=== PATIENT | female | born 1975 | race Caucasian/White ===

== ENCOUNTER 2021-07-28 14:51 | Outpatient (CLI) | payer OTHER, SELFPAY ==
--- NOTE | ~2021-07-28 | XR_ITS ---
EXAMINATION: XR chest 2V DATE: 07/28/2021 15:14 INDICATION: Right chest pain. TECHNIQUE: Frontal and lateral views of the chest were obtained. COMPARISON: None. FINDINGS: There is mild scarring at right lung apex. No pleural effusion or pneumothorax. The heart s ize is normal. A surgical clip overlie left chest. IMPRESSION: 1. Mild scarring at right lung apex. Reviewed, dictated and finalized at location A.
== END 2021-07-28 14:52 | disposition home or self-care (01) ==
LOC: CHSIMG 14:55
PROVIDERS: PCP Family Medicine; Visit Provider Physician Assistant
DX: R07.81 Pleurodynia (principal)
CPT/HCPCS: 71046

== ENCOUNTER 2021-10-31 13:58 | Outpatient (RCR) | payer OTHER, SELFPAY ==
--- NOTE | 2021-10-31 14:45 | PTOPEVAL ---
Thank you for referring Yojana Jaquez to [facility].? The patient is scheduled to be seen for therapy? __2__x/week for 12 visits. Please review, sign, date and return this plan of care GUME. I agree with and certify that the following plan of care is medically necessary. Referring Physician Date Admitting Provider: Attending Provider: VIKTORIYA BLANCAS Referring Provider: *PT Outpatient Evaluation Start: 10/31/21 14:10 Freq: Status: Active Protocol: Document 10/31/21 14:05 LIZBETH (Rec: 10/31/21 14:44 LIZBETH [email or web address]) Therapy Assessment Status Assessment Status Assessment Status Evaluation Evaluation Information Problem Diagnosis low back pain Onset 10/27/21 Subjective Information Pt. reports suffering from on/ Query Text:As Reported By Patient/ off back pain for several Family years. She describes pain on the left side of the back. She reports that occassionally pain will shoot down the left leg but rarely. She reports that the pain at the low back is continous. She reports nothing particular will increase her pain. She reports no difficulty with sleeping at night. 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 She reports her goal is to be able to decrease her back pain. Diagnostic Tests X-Rays For This Problem Yes Prior Level of Function Activity Level (Last 3 Months) Occupation breakfast manager Hand Dominance Right Activity of Daily Living Ability Independent Indoor/Home Mobility Independent Community Mobility Independent Stairs Ability Independent Functional Cognition (Planning, Shopping Independent , Taking Medications) Cooking Yes Cleaning Yes Laundry Yes Shopping Yes Driving Yes Pain Assessment Timing of Pain Assessment Timing of Pain Assessment Pre-Treatment Pain Scale Pain Scale Used Numeric (1 - 10) Self Report Pain Assessment Left Lower Back Reported Pain Level 7 Pain Description Aching Pain Radiation Left Leg Greatest Pain Intensity 10 Pain Aggravating Factors None Pain Score Pain
--- NOTE | 2021-11-29 07:51 | PCPTNOTE ---
Mrs. Jaquez attended a total of 4 treatment sessions from 10/31/21 татьяна 11/09/21. She has failed to return to the clinic and cannot be contact via telephone. She will be discharged from our care. Refer to pt. last daily note for discharge status.
== END 2021-11-09 13:53 | disposition home or self-care (01) ==
LOC: CHSPT 13:58
DX: M54.9 Dorsalgia, unspecified (principal); M54.50 Low back pain, unspecified
CPT/HCPCS: 97014; 97110; 97140; 97161; G0283

== ENCOUNTER 2024-05-18 08:00 | Outpatient (CLI) | payer OTHER, SELFPAY ==
--- NOTE | ~2024-05-18 | MM_ITS ---
EXAMINATION: MM screening gurmeet BI w leeanna HISTORY: Screening TECHNIQUE: Craniocaudal and mediolateral oblique 3-D tomosynthesis images were obtained and synthetic 2-D images were generated. CAD analysis was submitted and interpreted. COMPARISON: No prior mammogram is available for comparison at this institution. BREAST PARENCHYMAL COMPOSITION: Not dense: There are scattered areas of fibroglandular density. FINDINGS: There is no evidence of suspicious mass, calcification, or architectural distortion to sugg est malignancy in either breast. There has been no suspicious interval change. IMPRESSION: 1. No mammographic evidence of malignancy. 2. Recommend routine screening mammography in one year. BI-RADS Category 1: Negative Reviewed, dictated and finalized at location B.
== END 2024-05-18 08:01 | disposition home or self-care (01) ==
LOC: CHSIMG 08:06
PROVIDERS: PCP Physician Assistant; Visit Provider Physician Assistant
DX: Z12.31 Encounter for screening mammogram for malignant neoplasm of breast (principal)
CPT/HCPCS: 77063; 77067

== ENCOUNTER 2025-05-05 13:41 | Outpatient (CLI) | payer OTHER, SELFPAY ==
--- NOTE | ~2025-05-05 | XR_ITS ---
EXAM: XR toe 3rd LT min 2V DATE: 05/05/2025 14:00 HISTORY: PAIN OF TOE OF LEFT FOOT . COMPARISON: None available. FINDINGS: Normal mineralization. Subtle transverse lucency across the mid shaft of the left third pr oximal phalanx, with slight cortical irregularity and fluffy appearing periosteal changes. No lytic o r blastic lesion. Joint spaces are maintained. No erosions. Proximal soft tissue swelling of the thir d toe. IMPRESSION: Possible nondisplaced transverse fracture at the midshaft of the left third proximal phalanx if there has been history of trauma. Adjacent periosteal changes may represent healing change. In the absence of trauma, inflammatory or i nfectious changes should be considered. Correlate for clinical findings of infection, if present cons ider MR of the toes without and with contrast. Reviewed, dictated and finalized at location K. IMPRESSION: Possible nondisplaced transverse fracture at the midshaft of the left third pro ximal phalanx if there has been history of trauma. Adjacent periosteal changes may represent healing change. In the absence of tra brittni, inflammatory or infectious changes should be considered. Correlate for cli nical findings of infection, if present consider MR of the toes without and wit h contrast.
--- OUTSIDE RECORDS SUMMARY | 2025-05-05 13:49 | XMS_ITS | Clinical Summary ---
Author Organization 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 Gender Identity Not on file Sexual Orientation Not on file Last Filed Vital Signs Vital Sign Reading Time Taken Comments Blood Pressure 155/98 06/10/2021 8:15 PM CDT Pulse 78 06/10/2021 6:08 PM CDT Temperature 35.8 C (96.5 F) 06/10/2021 6:08 PM CDT Respiratory Rate 18 06/10/2021 6:08 PM CDT Oxygen Saturation 97% 06/10/2021 8:15 PM CDT Inhaled Oxygen Concentration - - Weight 82 kg (180 lb 12.4 oz) 06/10/2021 6:08 PM CDT Height 157.5 cm (5' 2) 06/10/2021 6:08 PM CDT Body Mass Index 33.06 06/10/2021 6:08 PM CDT Plan of Treatment Health Maintenance Due Date Last Done Comments Cervical Cancer Screening Pa p Smear (Age 30 to 64) Every 3 Years 1975 Colorectal Cancer Screening Colonoscopy (10 Years) 1975 Annual Physical 1978 Hepatitis C 1993 DTaP, Tdap and Td Vaccines ( 1 - Tdap) 1994 Hepatitis B Vaccines (1 of 3 - 19+ 3-dose series) 1994 Pneumococcal Vaccine: Pediatrics (0 to 5 Years) and At-Risk Patients (6 to 49 Years) (1 of 2 - PCV) 1994 Cervical Cancer Screening Pa p with HPV Testing (Age 30 to 64) Every 5 Years 2005 Cervical Cancer Screening wi th HPV 2005 Mammogram Screening 04/13/2022 04/13/2020, 04/08/2020 COVID-19 Vaccine (2023-2 5 season) 2024 Meningococcal B Vaccine Aged Out No l onger eligible based on patient's age to complete this topic Meningococcal Vaccine Aged Out No alice babatunde eligible based on patient's age to complete this topic RSV Immunizations Under 20 Months Aged Out No longer eligible b ased on patient's age to complete this topic Procedures Procedure Name Priority Date/Time Associated Diagnosis Comments MG DIAG ADD VIEW RT DIGI Routine 04/13/2020 9:11 AM CDT Abnormal mammogram from Last 3 Months or Most Recently Relevant to Health Maintenance Results * MG DIAG ADD VIEW RT DIGI (04/13/2020 9:11 AM CDT) Anatomical Region Laterality Modality Breast Right Mammography 04/18/2020 3:49 PM CDT Impressions 04/18/2020 3:55 PM CDT IMPRESSION: Additional diagnostic imaging fails to disclose any suspicious abnormality. Routine follow-up in one year would now seem adequate. Recommendation: 1: Routine screening mammogram Bilateral in 1 Year Overall assessment: ACR BI-RADS Category 2 - Benign. Return for Routine Follow-Up: Yes Interpreted By: Silverio Arriola, 04/18/2020 3:49 PM Narrative 04/18/2020 3:55 PM CDT Examination: Digital right diagnostic mammogram with CAD. [id number] Clinical history: Follow-up, abnormal screening mammogram. Comparison: 04/08/2020. Technique: True lateral and spot compression CC and MLO right digital mammograms. The exam was interpreted with the use of a computer-aided detection (CAD) system. Tissue density: The breast tissue is heterogeneously dense. Findings: The patient returned for additional diagnostic imaging to further evaluate the abnormalities identified at baseline screening. The single view asymmetry posteriorly identified on the MLO view near the nipple axis at screening shows no correlate on the true lateral view. Under spot compression, there is effacement with no evidence of underlying mass, suspicious microcalcification or architectural distortion. This is consistent with benign summation. The questioned architectural distortion in the upper outer quadrant shows no definite correlate on the true lateral view. Under spot compression, there is subtotal effacement with no definite evidence of underlying mass, suspicious microcalcification or architectural distortion. Mixed fatty and moderately dense tissue background persists. Benign-appearing calcification again evident. Due to the density of the local tissue background, it was elected to perform ultrasound. Examination: Right breast ultrasound. Technique:Grayscale and color Doppler images. Findings: Survey was performed from the 8:00-1:00 positions through 12:00 encompassing the broad region of interest. A 5 mm in greatest dimension mammographically occult benign complicated cyst is noted at the 12:00 position 4 cm from the nipple. There are scattered fibrocystic changes against an otherwise bland appearing tissue background, concordant with the degree of mammographic density. No other sonographically discrete finding is identified. No sonographically suspicious abnormality is identified. Evaluation of the axilla, performed per the protocol, shows no morphologically abnormal appearing lymph nodes. Based on these findings, routine mammographic follow-up in one year would now seem adequate. These findings were discussed with the patient. Lala Blackman [facility] Final Re sult from Last 3 Months or Most Recently Relevant to Health Maintenance Insurance [employer] Care Teams Electrician Assistant Relationship Specialty Start Date End Date Lala Blackman FNP [address] [place] [phone] PCP - General NURSE PRACTITIONER 04/08/20
--- OUTSIDE RECORDS SUMMARY | 2025-05-05 13:49 | XMS_ITS | Encounter Summary ---
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
== END 2025-05-05 13:42 | disposition home or self-care (01) ==
PROVIDERS: PCP Physician Assistant; Visit Provider Physician Assistant
DX: M79.675 Pain in left toe(s) (principal)
CPT/HCPCS: 73660